=== PATIENT | female | born 1955 | race Caucasian/White ===

== ENCOUNTER 2017-02-05 10:50 | Outpatient (CLI) | payer OTHER ==
[2013-10-12 02:10] VITALS: BP 108/49
== END 2017-02-05 10:52 ==
LOC: LABRHC 10:50
PROVIDERS: ATTEND Family Medicine
DX: Z12.4 Encounter for screening for malignant neoplasm of cervix (principal)
CPT/HCPCS: 88148; G0143

== ENCOUNTER 2017-10-16 16:20 | Outpatient (CLI) | payer OTHER ==
[2013-10-12 02:10] VITALS: BP 108/49
[2017-10-16 16:58] LABS: MEAN CORPUSCULAR HEMOGLOBIN 31.3 pg (28.0-34.0); MEAN CORPUSCULAR VOLUME 93.2 fl (80.0-100.0)
[2017-10-17 05:42] LABS: TOTAL PROTEIN 7.4 g/dL (6.0-8.5)
== END 2017-10-16 16:21 ==
LOC: LAB 16:20
PROVIDERS: ATTEND Family Medicine
DX: Z00.00 Encounter for general adult medical examination without abnormal findings (principal); Z13.29 Encounter for screening for other suspected endocrine disorder
CPT/HCPCS: 36415; 80053; 80061; 84443; 85027

== ENCOUNTER 2017-12-03 11:14 | Day surgery (SDC) | payer OTHER ==
[2013-10-12 02:10] VITALS: BP 108/49
[~2017-12-03 11:14] MED LIST: LACTATED RINGERS 1,000 ML IV.SOLN IV ONE; PROPOFOL 200 MG/20 ML VIAL IV ONE; PROPOFOL 500 MG/50 ML VIAL IV ONE; SALINE FLUSH 10 ML DISP.SYRIN IVF ONE
--- NOTE | 2017-12-04 12:09 | GI Report ---
REFERRING PHYSICIAN: Dr. Laura Beth BORDER MEASURER: Washington Cee MD PROCEDURE MEDICATION: Propofol as per anesthesia. INDICATIONS: A 62-year-old woman with a high-risk family history. Her brother had colon cancer in his 50s and required some chemotherapy. Patient has had problems with constipation. No bleeding. PROCEDURE PERFORMED: Colonoscopy. PROCEDURE: An Olympus video colonoscope was advanced to the rectum. A very atonic redundant colon. It took nurse compression, rotating to supine position, and reducing loops to finally be able to reach the cecum. The prep was fair. We had to lavage a number of areas. The appendiceal orifice and ileocecal valve were normal. On slow withdrawal, the cecum and ascending colon were normal except for redundancy and atony. The descending colon and sigmoid, again, a very atonic redundant colon. No obvious intraluminal lesions were noted. Retroflexion of the rectum was normal. Patient tolerated the procedure well. FINDINGS: 1. Normal-appearing mucosa except for melanosis coli. 2. A very atonic redundant colon. 3. No polyps or other lesions noted. 4. Prep was fair. RECOMMENDATIONS: 1. I will have her go on something like MiraLAX daily and have more fiber in her diet. 2. Consider re-looking at her colon in 5 years. 3. Next time would do a 2-day prep to make sure she gets cleaned out a little better. 4. Follow up with Dr. Beth. cc: Dr. Laura BENITEZ
== END 2017-12-03 11:16 ==
LOC: OPSURG 11:14
PROVIDERS: ATTEND Internal Medicine Gastroenterology
DX: Z12.11 Encounter for screening for malignant neoplasm of colon (principal); Z80.0 Family history of malignant neoplasm of digestive organs; K59.8 Other specified functional intestinal disorders
CPT/HCPCS: J2704; J7120; 45378; S1016

== ENCOUNTER 2017-12-12 16:33 | Outpatient (CLI) | payer OTHER ==
[2013-10-12 02:10] VITALS: BP 108/49
== END 2017-12-12 16:34 ==
LOC: LAB 16:33
PROVIDERS: ATTEND Family Medicine
DX: E03.9 Hypothyroidism, unspecified (principal)
CPT/HCPCS: 36415; 84443

== ENCOUNTER 2018-03-26 16:10 | Outpatient (CLI) | payer OTHER ==
[2013-10-12 02:10] VITALS: BP 108/49
== END 2018-03-26 16:12 ==
LOC: LABRHC 16:10
PROVIDERS: ATTEND Family Medicine
DX: Z12.4 Encounter for screening for malignant neoplasm of cervix (principal)
CPT/HCPCS: 87624; 88148; G0143

== ENCOUNTER 2018-10-02 11:11 | Outpatient (CLI) | payer OTHER ==
[2013-10-12 02:10] VITALS: BP 108/49
[2018-10-02 12:27] LABS: HDL 43 mg/dL (>40); eGFR (Non-African) > 60
== END 2018-10-02 11:14 ==
LOC: LAB 11:11
PROVIDERS: ATTEND Family Medicine
DX: E03.9 Hypothyroidism, unspecified (principal)
CPT/HCPCS: 36415; 80053; 80061; 84443